=== PATIENT | female | born 1990 | race Two or more races ===

== ENCOUNTER 2024-09-26 08:29 | Outpatient (CLI) | payer OTHER | END 2024-09-26 08:34 | disposition home or self-care (01) | LOC: PRENATAL 08:29 | PROVIDERS: ATTEND Obstetrics & Gynecology Maternal & Fetal Medicine | DX: O44.00 Complete placenta previa NOS or without hemorrhage, unspecified trimester (principal); O41.00X0 Oligohydramnios, unspecified trimester, not applicable or unspecified; O28.3 Abnormal ultrasonic finding on antenatal screening of mother; Z3A.17 17 weeks gestation of pregnancy ==